=== PATIENT | female | born 1980 | race Caucasian/White ===

== ENCOUNTER → 2016-12-18 | Outpatient (CLI) | payer MEDICARE, OTHER ==
--- NOTE | 2016-12-18 13:56 | RAD ---
EXAM: CT head without contrast. HISTORY: Headache, Chiari malformation. TECHNIQUE: Computed tomography of the head was performed without intravenous contrast. COMPARISON: None. FINDINGS: The posterior fossa is small. 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 Bilateral frontal and right occipital shunt catheter is in place. The ventricles are not enlarged. 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 The visualized paranasal sinuses appear clear. The orbits are unremarkable. The temporal bones are unremarkable. The calvarium reveals no suspicious lesions. IMPRESSION: 1. 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 The ventricles are not enlarged currently. Comparison with old studies is recommended for further evaluation. *One or more of the following individualized dose reduction techniques were utilized for this examination: 1. Automated exposure control. 2. Adjustment of the mA and/or kV according to patient size. 3. Use of iterative reconstruction technique.
== END | disposition home or self-care (01) ==
LOC: CT 13:21
PROVIDERS: ATTEND Neurological Surgery
DX: R51 Headache (principal); Z98.2 Presence of cerebrospinal fluid drainage device
CPT/HCPCS: 70450